=== PATIENT | female | born 1975 | race African-American/Black ===

== ENCOUNTER → 2017-08-22 | Outpatient (CLI) | payer OTHER ==
[2015-10-27 09:40] VITALS: BP 136/69
[~2017-08-22] MED LIST: AMLO1CAP12 PO; HYDR50TA6 PO; METO100T2 PO
--- NOTE | 2017-08-22 10:47 | KCIC ---
PELVIS W/TV History: Menorrhagia Comparison: None. Findings: Multiple transabdominal sonographic images of the pelvis are submitted. Pelvic structures are poorly visualized. Transvaginal ultrasound: Multiple transvaginal sonographic images of the pelvis are submitted. Uterus measured 13.4 x 9.2 x 10.3 cm. There is a large uterine mass on the order of 8.3 x 7.5 x 6.3 cm likely centered in the more anterior uterus although extends posteriorly with obscuration of the endometrium. Neither ovary could be visualized due to bowel gas. Varices are visualized bilaterally, right greater than left. No significant free fluid is demonstrated. Impression: 1. Uterus is enlarged, large uterine mass which may be due to a large fibroid which obscures the endometrium. 2. Neither ovary could be visualized on this exam. 3. 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 Electronically signed by: César Jansen MD (08/22/2017 10:44 AM) [id number]
== END | disposition home or self-care (01) ==
LOC: KCIC US 09:25
PROVIDERS: ATTEND Family Medicine
DX: Z12.31 Encounter for screening mammogram for malignant neoplasm of breast (principal); N92.0 Excessive and frequent menstruation with regular cycle; I86.2 Pelvic varices
CPT/HCPCS: 76830; 76856; G0202; 77067